=== PATIENT | female | born 1995 | race Caucasian/White ===

== ENCOUNTER → 2018-07-22 | Outpatient (REF) | payer OTHER ==
[2018-07-23 12:15] LABS: CHLAMYDIA DNA AMPLIFICATION NEGATIVE (NEGATIVE); GC DNA AMPLIFICATION NEGATIVE (NEGATIVE)
== END ==
LOC: M SFHCWAGY 13:45
PROVIDERS: ATTEND Nurse Practitioner Family
DX: Z12.4 Encounter for screening for malignant neoplasm of cervix (principal); Z11.3 Encounter for screening for infections with a predominantly sexual mode of transmission
CPT/HCPCS: 87491; 87591; G0123

== ENCOUNTER → 2018-10-12 | Outpatient (CLI) | payer OTHER ==
[2018-10-12 12:26] LABS: BASO % 0.8 % (0.0-1.0); EOS # 0.1 10^3/uL (0.0-0.50); EOS % 1.3 % (0.0-3.0); HEMATOCRIT 41.5 % (36.0-47.0); HEMOGLOBIN 13.9 g/dl (12.0-15.5); LYMPH # 1.2 10^3/uL (1.5-6.5); LYMPH % 24.6 % (24.0-44.0); MEAN CORPUSCULAR HEMOGLOBIN 31.3 pg (27.0-33.0); MEAN CORPUSCULAR HGB CONC 33.5 g/dl (32.0-36.5); MEAN CORPUSCULAR VOLUME 93.5 fl (80.0-96.0); MONO # 0.5 10^3/uL (0.0-0.8); MONO % 9.4 % (0.0-5.0); NEUTROPHILS # 3.1 10^3/uL (1.8-7.7); NEUTROPHILS % 63.7 % (36.0-66.0); PLATELET COUNT, AUTOMATED 204 10^3/uL (150-450); RED BLOOD COUNT 4.44 10^6/uL (4.00-5.40); WHITE BLOOD COUNT 4.8 10^3/uL (4.0-10.0)
[2018-10-12 13:00] LABS: ALBUMIN 4.1 GM/DL (3.2-5.2); ALT/SGPT 16 U/L (12-78); BILIRUBIN,TOTAL 0.7 MG/DL (0.2-1.0); BLOOD UREA NITROGEN 7 MG/DL (7-18); CALCIUM LEVEL 8.4 MG/DL (8.5-10.1); CARBON DIOXIDE LEVEL 27 MEQ/L (21-32); CHLORIDE LEVEL 109 MEQ/L (98-107); CPK CREATINE PHOSPHOKINASE 114 U/L (26-192); CREATININE FOR GFR 0.71 MG/DL (0.55-1.30); FREE T4 0.82 NG/DL (0.76-1.46); GLOMERULAR FILTRATION RATE > 60.0 (>60); GLUCOSE, FASTING 84 MG/DL (70-100); MB/CK RELATIVE INDEX 0.96 (< OR =4); POTASSIUM SERUM 4.4 MEQ/L (3.5-5.1); SODIUM LEVEL 142 MEQ/L (136-145); TOTAL PROTEIN 7.8 GM/DL (6.4-8.2); TROPONIN I < 0.02 NG/ML (< 0.10)
== END ==
LOC: M WUC 11:23
PROVIDERS: ATTEND Physician Assistant
DX: R00.2 Palpitations (principal)

== ENCOUNTER → 2021-05-11 | Outpatient (CLI) | payer BC | LOC: M PLAIMG 15:15 | PROVIDERS: ATTEND Nurse Practitioner Family | DX: M25.551 Pain in right hip (principal); Z53.9 Procedure and treatment not carried out, unspecified reason ==

== ENCOUNTER → 2021-05-16 | Outpatient (CLI) | payer BC ==
--- NOTE | 2021-05-16 10:12 | REP ---
INDICATION: PAIN IN RIGHT HIP COMPARISON: None. TECHNIQUE: AP and frog-lateral views of the right hip hip FINDINGS: Osseous structures, joint spaces, and surrounding soft tissues are age-appropriate and normal. No evidence for acute or healed injury. No overt degenerative or congenital abnormalities. IMPRESSION: Normal age-appropriate right hip radiographs. <Electronically signed by Naga Pedersen > 05/16/21 [id number]
== END ==
LOC: M PLAIMG 09:52
PROVIDERS: ATTEND Nurse Practitioner Family
DX: M25.551 Pain in right hip (principal)

== ENCOUNTER → 2021-09-12 | Outpatient (CLI) | payer BC ==
[2021-09-12 13:26] LABS: BASO % 0.9 % (0.0-1.0); EOS # 0.1 10^3/uL (0.0-0.5); EOS % 1.3 % (0.0-3.0); HEMATOCRIT 41.1 % (36.0-47.0); HEMOGLOBIN 13.7 g/dl (12.0-15.5); LYMPH # 1.2 10^3/uL (1.5-5.0); LYMPH % 25.4 % (24.0-44.0); MEAN CORPUSCULAR HEMOGLOBIN 29.9 pg (27.0-33.0); MEAN CORPUSCULAR HGB CONC 33.3 g/dl (32.0-36.5); MEAN CORPUSCULAR VOLUME 89.7 fl (80.0-96.0); MONO # 0.5 10^3/uL (0.0-0.8); MONO % 10.8 % (2.0-8.0); NEUTROPHILS # 2.9 10^3/uL (1.5-8.5); NEUTROPHILS % 61.4 % (36.0-66.0); PLATELET COUNT, AUTOMATED 196 10^3/uL (150-450); RED BLOOD COUNT 4.58 10^6/uL (4.00-5.40); WHITE BLOOD COUNT 4.6 10^3/uL (4.0-10.0)
[2021-09-12 14:00] LABS: ALBUMIN 4.1 GM/DL (3.2-5.2); ALT/SGPT 18 U/L (12-78); BILIRUBIN,TOTAL 0.5 MG/DL (0.2-1.0); BLOOD UREA NITROGEN 12 MG/DL (7-18); CALCIUM LEVEL 9.1 MG/DL (8.5-10.1); CARBON DIOXIDE LEVEL 28 MEQ/L (21-32); CHLORIDE LEVEL 107 MEQ/L (98-107); CHOLESTEROL LEVEL 142 MG/DL (<200); CHOLESTEROL RISK RATIO 2.184 (<5); CREATININE FOR GFR 0.82 MG/DL (0.55-1.30); FREE T4 0.94 NG/DL (0.76-1.46); GLOMERULAR FILTRATION RATE > 60.0 (>60); GLUCOSE, FASTING 87 MG/DL (70-100); HDL CHOLESTEROL 65 MG/DL (>40); LDL CHOLESTEROL 68 MG/DL (<100); NON-HDL-C 77 MG/DL; POTASSIUM SERUM 5.3 MEQ/L (3.5-5.1); SODIUM LEVEL 138 MEQ/L (136-145); TOTAL PROTEIN 7.2 GM/DL (6.4-8.2); TRIGLYCERIDES LEVEL 43 MG/DL (<150)
== END ==
LOC: M PLALAB 10:17
PROVIDERS: ATTEND Nurse Practitioner Family
DX: Z00.00 Encounter for general adult medical examination without abnormal findings (principal); Z13.220 Encounter for screening for lipoid disorders; R53.83 Other fatigue

== ENCOUNTER → 2022-05-13 | Outpatient (CLI) | payer BC ==
[2022-05-13 19:04] LABS: HCG, SERUM QUALITATIVE POSITIVE (NEGATIVE)
== END ==
LOC: M PLALAB 15:34
PROVIDERS: ATTEND Nurse Practitioner Family
DX: Z32.01 Encounter for pregnancy test, result positive (principal); Z3A.00 Weeks of gestation of pregnancy not specified

== ENCOUNTER → 2022-06-21 | Outpatient (CLI) | payer BC ==
[2022-06-21 17:29] LABS: HEMATOCRIT 40.3 % (36.0-47.0); HEMOGLOBIN 13.4 g/dl (12.0-15.5); MEAN CORPUSCULAR HGB CONC 33.3 g/dl (32.0-36.5); MEAN CORPUSCULAR VOLUME 90.2 fl (80.0-96.0); PLATELET COUNT, AUTOMATED 210 10^3/uL (150-450); RED BLOOD COUNT 4.47 10^6/uL (4.00-5.40); WHITE BLOOD COUNT 6.5 10^3/uL (4.0-10.0)
[2022-06-21 18:13] LABS: HIV 1&2 SCREEN CENTAUR NEGATIVE (NEGATIVE)
[2022-06-21 18:21] LABS: HEPATITIS C VIRUS ABY INDEX 0.1 INDEX (<0.8)
[2022-06-21 18:58] LABS: GC DNA AMPLIFICATION NEGATIVE (NEGATIVE)
== END ==
LOC: M PLALAB 15:13
PROVIDERS: ATTEND Advanced Practice Midwife
DX: O99.511 Diseases of the respiratory system complicating pregnancy, first trimester (principal)

== ENCOUNTER → 2022-07-16 | Outpatient (CLI) | payer BC | LOC: M PLALAB 16:21 | PROVIDERS: ATTEND Specialist | DX: Z34.02 Encounter for supervision of normal first pregnancy, second trimester (principal) ==

== ENCOUNTER → 2022-07-16 | Outpatient (CLI) | payer BC | LOC: M WHC 16:06 | PROVIDERS: ATTEND Specialist | DX: Z34.02 Encounter for supervision of normal first pregnancy, second trimester (principal); Z53.9 Procedure and treatment not carried out, unspecified reason ==

== ENCOUNTER → 2022-09-18 | Outpatient (CLI) | payer BC | LOC: M WHC 10:00 | PROVIDERS: ATTEND Specialist | DX: Z34.02 Encounter for supervision of normal first pregnancy, second trimester (principal); Z3A.23 23 weeks gestation of pregnancy; Z36.89 Encounter for other specified antenatal screening ==

== ENCOUNTER → 2022-10-23 | Outpatient (CLI) | payer BC ==
[2022-10-23 17:47] LABS: HEMATOCRIT 34.4 % (36.0-47.0); HEMOGLOBIN 11.7 g/dl (12.0-15.5); MEAN CORPUSCULAR HEMOGLOBIN 31.5 pg (27.0-33.0); MEAN CORPUSCULAR VOLUME 92.5 fl (80.0-96.0); PLATELET COUNT, AUTOMATED 207 10^3/uL (150-450); RED BLOOD COUNT 3.72 10^6/uL (4.00-5.40); WHITE BLOOD COUNT 9.1 10^3/uL (4.0-10.0)
[2022-10-23 18:45] LABS: GC DNA AMPLIFICATION NEGATIVE (NEGATIVE)
== END ==
LOC: M PLALAB 14:51
PROVIDERS: ATTEND Obstetrics & Gynecology
DX: Z36.89 Encounter for other specified antenatal screening (principal); Z3A.00 Weeks of gestation of pregnancy not specified

== ENCOUNTER → 2022-12-13 | Outpatient (REF) | payer BC | LOC: M PLALAB 10:36 | PROVIDERS: ATTEND Obstetrics & Gynecology | DX: Z36.85 Encounter for antenatal screening for Streptococcus B (principal) ==

== ENCOUNTER 2023-01-17 16:36 | Inpatient (IN) | payer BC ==
[2023-01-17] VITALS (9 sets, daily range): BP systolic 91–189; BP diastolic 45–87
[~2023-01-17] VITALS: Ht 167.6 cm; Wt 86.3 kg
[2023-01-17] MEDS ORDERED: HOME MED LIST COMPLETE! XX SCH (16:50)
[2023-01-17] MEDS ORDERED: CARBOPROST TROMETHAMINE 250 MCG/ML AMP IM PRN (17:10)
[2023-01-17] MEDS ORDERED: OXYTOCIN DRIP 30 UNITS in IV 1 EA IV PRN (17:10)
[2023-01-17] MEDS ORDERED: TRANEXAMIC ACID INJection 1,000 MG in NS 100 ML IV PRN (17:10)
[2023-01-17] MEDS ORDERED: METHYLERGONOVINE MALEATE 0.2MG/ML 1ML VIAL IM PRN (17:10)
[2023-01-17] MEDS ORDERED: OXYTOCIN INJ 10UNITS/ML 1ML VIAL IM PRN (17:10)
[2023-01-17] MEDS ORDERED: LACTATED RINGER'S 1000 ML IV STA (17:10)
[2023-01-17] MEDS ORDERED: LIDOCAINE 1% MDV 20ML VIAL INFIL PRN (17:10)
[2023-01-17 18:21] LABS: HEMATOCRIT 35.6 % (36.0-47.0); HEMOGLOBIN 11.7 g/dl (12.0-15.5); MEAN CORPUSCULAR HGB CONC 32.9 g/dl (32.0-36.5); MEAN CORPUSCULAR VOLUME 88.1 fl (80.0-96.0); PLATELET COUNT, AUTOMATED 216 10^3/uL (150-450); RED BLOOD COUNT 4.04 10^6/uL (4.00-5.40); WHITE BLOOD COUNT 13.2 10^3/uL (4.0-10.0)
[2023-01-17 18:23] LABS: URIC ACID 5.3 MG/DL (3.1-7.8)
[2023-01-17 18:26] LABS: ALT/SGPT 11 U/L (7.0-40); AST/SGOT 15 U/L (<34); BILIRUBIN,TOTAL 0.8 MG/DL (0.3-1.2); CREATININE FOR GFR 0.55 MG/DL (0.55-1.30); GLOMERULAR FILTRATION RATE > 60.0 (>60); LDH LACTATE DEHYDROGENASE 188 U/L (120-246)
[2023-01-17 19:14] LABS: TOTAL PROTEIN,RANDOM URINE 31.7 MG/DL (0.0-14.0)
[2023-01-17 19:19] LABS: CREATININE,RANDOM URINE 136.1 MG/DL
[2023-01-17] MEDS ORDERED: ONDANSETRON 4MG 2ML VIAL IV ONE (22:25)
[2023-01-18] VITALS (10 sets, daily range): BP systolic 112–171; BP diastolic 59–90; O2SAT 98–100
[2023-01-18] MEDS ORDERED: METHYLERGONOVINE MALEATE 0.2 MG TAB PO PRN (06:25)
[2023-01-18] MEDS ORDERED: ACETAMINOPHEN TAB 650MG DOSE (2X325MG) PO PRN (06:25)
[2023-01-18] MEDS ORDERED: IBUPROFEN 600MG TAB PO PRN (06:25)
[2023-01-18] MEDS ORDERED: RHOGAM 300MCG (1500IU) INJ IM SCH (06:25)
[2023-01-18] MEDS ORDERED: IBUPROFEN 800 MG TAB PO PRN (06:25)
[2023-01-18] MEDS ORDERED: DIBUCAINE 1% OINTMENT 30GM TOP PRN (06:25)
[2023-01-18] MEDS: ACETAMINOPHEN 500 MG TAB PO PRN (06:37)
[2023-01-18] MEDS: PRENATAL VITAMINS CHEWABLE TABLET PO SCH (09:45)
[2023-01-19] MEDS: DOCUSATE SODIUM 100MG CAPSULE PO PRN ×2 (01:37→19:24)
[2023-01-19] MEDS: PRENATAL VITAMINS CHEWABLE TABLET PO SCH (08:41)
[2023-01-19] MEDS ORDERED: HOME MED LIST COMPLETE! XX SCH (09:45)
[2023-01-19 18:00] VITALS: BP 131/64; O2SAT 98
[2023-01-20 06:00] VITALS: BP 110/59; O2SAT 98
[2023-01-20] MEDS: PRENATAL VITAMINS CHEWABLE TABLET PO SCH (07:30)
[2023-01-20] MEDS ORDERED: MEASLES,MUMPS,RUBELLA VACCINE INJ (MMR-II) SC.IMMUN ONE (09:00)
[2023-01-20] MEDS: ACETAMINOPHEN 500 MG TAB PO PRN (12:47)
== END 2023-01-20 12:50 | disposition home or self-care (01) | DRG 560 ==
LOC: M LDO 16:36 → M LDI 17:12 → M OBS 01-18 06:40
PROVIDERS: ADMIT Advanced Practice Midwife; ATTEND Advanced Practice Midwife
PROC: 10E0XZZ Delivery of Products of Conception, External Approach (ICD-10-PCS; principal; 2023-01-18)
PROC: 0KQM0ZZ Repair Perineum Muscle, Open Approach (ICD-10-PCS; 2023-01-18)
PROC: 10907ZC Drainage of Amniotic Fluid, Therapeutic from Products of Conception, Via Natural or Artificial Opening (ICD-10-PCS; 2023-01-18)
PROC: 0W8NXZZ Division of Female Perineum, External Approach (ICD-10-PCS; 2023-01-18)
DX: O48.0 Post-term pregnancy (principal); O76 Abnormality in fetal heart rate and rhythm complicating labor and delivery; Z37.0 Single live birth; Z3A.40 40 weeks gestation of pregnancy; O69.1XX0 Labor and delivery complicated by cord around neck, with compression, not applicable or unspecified; O70.1 Second degree perineal laceration during delivery

== ENCOUNTER → 2023-08-22 | Outpatient (CLI) | payer BC ==
[2023-08-22 12:42] LABS: ALKALINE PHOSPHATASE 88 U/L (46-116); ALT/SGPT 15 U/L (7.0-40); AST/SGOT < 8 U/L (<34); BILIRUBIN,TOTAL 0.7 MG/DL (0.3-1.2); BLOOD UREA NITROGEN 9 MG/DL (9-23); CALCIUM LEVEL 8.9 MG/DL (8.5-10.1); CARBON DIOXIDE LEVEL 28 MMOL/L (20-31); CHLORIDE LEVEL 106 MMOL/L (98-107); CREATININE FOR GFR 0.67 MG/DL (0.55-1.30); GLOMERULAR FILTRATION RATE > 60.0 (>60); GLUCOSE, FASTING 86 MG/DL (60-100); POTASSIUM SERUM 4.3 MMOL/L (3.5-5.1); SODIUM LEVEL 140 MMOL/L (136-145); TOTAL PROTEIN 7.1 G/DL (5.7-8.2)
[2023-08-22 12:43] LABS: BASO % 0.6 % (0.0-1.0); EOS # 0.1 10^3/uL (0.0-0.5); HEMATOCRIT 41.8 % (36.0-47.0); HEMOGLOBIN 13.7 g/dl (12.0-15.5); LYMPH # 1.2 10^3/uL (1.5-5.0); LYMPH % 17.9 % (24.0-44.0); MEAN CORPUSCULAR HEMOGLOBIN 29.8 pg (27.0-33.0); MEAN CORPUSCULAR HGB CONC 32.8 g/dl (32.0-36.5); MEAN CORPUSCULAR VOLUME 91.1 fl (80.0-96.0); MONO # 0.7 10^3/uL (0.0-0.8); MONO % 10.4 % (2.0-8.0); NEUTROPHILS # 4.6 10^3/uL (1.5-8.5); NEUTROPHILS % 68.8 % (36.0-66.0); PLATELET COUNT, AUTOMATED 235 10^3/uL (150-450); RED BLOOD COUNT 4.59 10^6/uL (4.00-5.40); WHITE BLOOD COUNT 6.6 10^3/uL (4.0-10.0)
== END ==
LOC: M PLALAB 10:09
PROVIDERS: ATTEND Nurse Practitioner Family
DX: N61.0 Mastitis without abscess (principal)

== ENCOUNTER → 2023-09-18 | Outpatient (CLI) | payer BC | LOC: M WHC 07:29 | PROVIDERS: ATTEND Nurse Practitioner Family | DX: N61.0 Mastitis without abscess (principal) ==

== ENCOUNTER → 2023-09-30 | Outpatient (CLI) | payer BC ==
[2023-09-30 14:03] LABS: BASO # 0.1 10^3/uL (0.0-0.2); BASO % 1.2 % (0.0-1.0); EOS # 0.1 10^3/uL (0.0-0.5); EOS % 3.2 % (0.0-3.0); HEMATOCRIT 41.7 % (36.0-47.0); HEMOGLOBIN 13.5 g/dl (12.0-15.5); LYMPH # 1.4 10^3/uL (1.5-5.0); LYMPH % 32.3 % (24.0-44.0); MEAN CORPUSCULAR HEMOGLOBIN 30.2 pg (27.0-33.0); MEAN CORPUSCULAR HGB CONC 32.4 g/dl (32.0-36.5); MEAN CORPUSCULAR VOLUME 93.3 fl (80.0-96.0); MONO # 0.4 10^3/uL (0.0-0.8); MONO % 8.8 % (2.0-8.0); NEUTROPHILS # 2.3 10^3/uL (1.5-8.5); NEUTROPHILS % 54.3 % (36.0-66.0); PLATELET COUNT, AUTOMATED 221 10^3/uL (150-450); RED BLOOD COUNT 4.47 10^6/uL (4.00-5.40); WHITE BLOOD COUNT 4.3 10^3/uL (4.0-10.0)
[2023-09-30 14:04] LABS: ALBUMIN 4.1 G/DL (3.2-5.2); ALKALINE PHOSPHATASE 87 U/L (46-116); ALT/SGPT 10 U/L (7.0-40); AST/SGOT 12 U/L (<34); BILIRUBIN,TOTAL 0.5 MG/DL (0.3-1.2); BLOOD UREA NITROGEN 16 MG/DL (9-23); CALCIUM LEVEL 9.5 MG/DL (8.5-10.1); CARBON DIOXIDE LEVEL 27 MMOL/L (20-31); CHLORIDE LEVEL 105 MMOL/L (98-107); CREATININE FOR GFR 0.73 MG/DL (0.55-1.30); GLOMERULAR FILTRATION RATE > 60.0 (>60); GLUCOSE, FASTING 80 MG/DL (60-100); POTASSIUM SERUM 5.1 MMOL/L (3.5-5.1); SODIUM LEVEL 139 MMOL/L (136-145)
[2023-09-30 14:10] LABS: THYROID STIMULATING HORMONE 1.584 uIU/ML (0.55-4.78)
== END ==
LOC: M PLALAB 09:29
PROVIDERS: ATTEND Nurse Practitioner Family
DX: Z00.00 Encounter for general adult medical examination without abnormal findings (principal); R53.83 Other fatigue

== ENCOUNTER 2023-10-31 10:53 | Outpatient (RCR) | payer BC | END 2023-11-07 | LOC: M PT 10:53 | PROVIDERS: ATTEND Nurse Practitioner Family | DX: N94.10 Unspecified dyspareunia (principal); N39.3 Stress incontinence (female) (male) ==

== ENCOUNTER → 2024-09-28 | Outpatient (CLI) | payer BC ==
[2024-09-28 10:27] LABS: HEMATOCRIT 40.6 % (36.0-47.0); HEMOGLOBIN 13.1 g/dl (12.0-15.5); MEAN CORPUSCULAR HEMOGLOBIN 29.1 pg (27.0-33.0); MEAN CORPUSCULAR HGB CONC 32.3 g/dl (32.0-36.5); MEAN CORPUSCULAR VOLUME 90.2 fl (80.0-96.0); PLATELET COUNT, AUTOMATED 170 10^3/uL (150-450); WHITE BLOOD COUNT 3.6 10^3/uL (4.0-10.0)
[2024-09-28 10:51] LABS: ATYPICAL LYMPH 5 % (0-5); BASOPHILS 1 % (0-1); EOSINOPHILS 2 % (0-3); LYMPHOCYTES 33 % (16-44); MONOCYTES 10 % (0-5); NEUTROPHILS 45 % (28-66)
[2024-09-28 10:52] LABS: PLATELET ESTIMATE NORMAL (NORMAL)
[2024-09-28 10:58] LABS: ALBUMIN 3.8 G/DL (3.2-5.2); ALKALINE PHOSPHATASE 63 U/L (35-104); ALT/SGPT 19 U/L (7.0-40); AST/SGOT 14 U/L (<34); BILIRUBIN,TOTAL 0.4 MG/DL (0.3-1.2); BLOOD UREA NITROGEN 13 MG/DL (9-23); CALCIUM LEVEL 8.8 MG/DL (8.5-10.1); CARBON DIOXIDE LEVEL 29 MMOL/L (20-31); CHLORIDE LEVEL 106 MMOL/L (98-107); CHOLESTEROL LEVEL 157 MG/DL (<200); CREATININE FOR GFR 0.68 MG/DL (0.55-1.30); GLOMERULAR FILTRATION RATE > 90.0 (>60); GLUCOSE, FASTING 95 MG/DL (60-100); HDL CHOLESTEROL 43.5 MG/DL (>40); LDL CHOLESTEROL 102.3 MG/DL (<100); NON-HDL-C 113.5 MG/DL; POTASSIUM SERUM 4.2 MMOL/L (3.5-5.1); SODIUM LEVEL 139 MMOL/L (136-145); TOTAL PROTEIN 6.9 G/DL (5.7-8.2); TRIGLYCERIDES LEVEL 56 MG/DL (<150)
[2024-09-28 11:00] LABS: THYROID STIMULATING HORMONE 0.958 uIU/ML (0.55-4.78)
[2024-09-28 11:01] LABS: FREE T4 1.19 NG/DL (0.89-1.76)
== END ==
LOC: M PLALAB 08:25
PROVIDERS: ATTEND Nurse Practitioner Family
DX: Z13.220 Encounter for screening for lipoid disorders (principal)

== ENCOUNTER → 2025-04-15 | Outpatient (CLI) | payer BC ==
[2025-04-15 13:30] LABS: APPEARANCE, URINE CLEAR (CLEAR); BACTERIA, URINE AUTO NEGATIVE (NEGATIVE); BILIRUBIN, URINE AUTO NEGATIVE (NEGATIVE); BLOOD, URINE BLOOD NEGATIVE (NEGATIVE); GLUCOSE, URINE (UA) AUTO NEGATIVE (NEGATIVE); KETONE, URINE AUTO NEGATIVE (NEGATIVE); LEUKOCYTE ESTERASE, URINE AUTO NEGATIVE (NEGATIVE); NITRITE, URINE AUTO NEGATIVE (NEGATIVE); PROTEIN, URINE AUTO NEGATIVE (NEGATIVE); RBC, URINE AUTO 0 /HPF (0-3); SPECIFIC GRAVITY URINE AUTO 1.005 (1.002-1.035); SQUAMOUS EPITHELIAL CELL UR AU 0 /HPF (0-6); UROBILINOGEN, URINE AUTO 0.2 mg/dL (0.0-2.0); WBC, URINE AUTO 2 /HPF (0-3)
[2025-04-15 13:32] LABS: PLATELET COUNT, AUTOMATED 201 10^3/uL (150-450)
[2025-04-15 13:40] LABS: FREE T4 1.01 NG/DL (0.89-1.76); TOTAL 25(OH) VITAMIN D 28.1 NG/ML (20.0-100.0)
[2025-04-15 14:10] LABS: HIV 1&2 SCREEN NEGATIVE (NEGATIVE)
[2025-04-15 14:19] LABS: HEPATITIS C VIRUS ABY INDEX < 0.02 INDEX (<0.8)
[2025-04-18 14:34] LABS: HERPES ZOSTER, VARICELLA IgG 2.47 S/CO (>=1.00)
[2025-04-20 07:53] LABS: HEMOGLOBINOPATHY EVAL HCT 39.1 % (35.0-45.0); HEMOGLOBINOPATHY EVAL HGB 12.8 g/dL (11.7-15.5); HEMOGLOBINOPATHY EVAL HGB A 97.2 % (>96.0); HEMOGLOBINOPATHY EVAL HGB A2 2.8 % (2.0-3.2); HEMOGLOBINOPATHY EVAL HGB F 0.0 % (<2.0); HEMOGLOBINOPATHY EVAL MCH 30.5 pg (27.0-33.0); HEMOGLOBINOPATHY EVAL MCV 93.3 fL (80.0-100.0); HEMOGLOBINOPATHY EVAL RBC 4.19 Mill/uL (3.80-5.10); HEMOGLOBINOPATHY EVAL RDW 13.1 % (11.0-15.0)
[2025-04-20 21:13] LABS: T PALLIDUM AB (FTA-AB) Nonreactive (Nonreactive)
== END ==
LOC: M PLALAB 09:30
PROVIDERS: ATTEND Physician Assistant
DX: Z34.82 Encounter for supervision of other normal pregnancy, second trimester (principal)

== ENCOUNTER → 2025-04-15 | Outpatient (CLI) | payer BC | LOC: M WHC 09:26 | PROVIDERS: ATTEND Physician Assistant | DX: Z34.82 Encounter for supervision of other normal pregnancy, second trimester (principal); Z3A.21 21 weeks gestation of pregnancy ==

== ENCOUNTER → 2025-05-23 | Outpatient (CLI) | payer BC | LOC: M WHC 07:52 | PROVIDERS: ATTEND Physician Assistant | DX: Z34.92 Encounter for supervision of normal pregnancy, unspecified, second trimester (principal) ==